=== PATIENT | female | born 1980 | race Caucasian/White ===

== ENCOUNTER 2018-11-22 15:29 | Emergency (ER) | payer BC, OTHER ==
[2018-11-22 15:34] VITALS: BP 124/82; PULSE 66; TEMP 98.2; BMI 30.2
[2018-11-22] MEDS ORDERED: ACETAMINOPHEN 1000 MG/100 ML VIAL (NON FORMULARY) IVPB ONE (15:34)
--- NOTE | 2018-11-22 15:34 | PDOC ---
Rapid Medical Evaluation Medical Evaluation: Allergies Allergy/AdvReac Type Severity Reaction Status Date / Time No Known Allergies Allergy Verified 12/14/12 19:12 I have performed a brief in-person evaluation of this patient. The patient presents with a chief complaint of: c/o R sided abdominal from yesterday radiating to lower back; last BM 2 days ago; is on menstrual cycle; denies urinary complaints, n/v, fever; only abd surgery: Pertinent physical exam findings: In NAD, abdomen soft/NT, no CVA tenderness I have ordered the following: labs The patient will proceed to the ED for further evaluation. 11/22/18 15:31
--- NOTE | 2018-11-22 19:39 | PDOC ---
*Physical Exam - Vital Signs Last Vital Signs Temp Pulse Resp BP Pulse Ox 98.2 F 66 19 124/82 100 11/22/18 15:32 11/22/18 15:32 11/22/18 15:32 11/22/18 15:32 11/22/18 15:32 ED Treatment Course - LABORATORY CBC & Chemistry Diagram: 11/22/18 20:15 11/22/18 20:15 Medical Decision Making - Medical Decision Making 11/22/18 19:39 Patient seen by the advanced practice provider under my direct supervision. Ancillary testing reviewed as necessary. I agree with plan as outlined by the advanced practice provider. *DC/Admit/Observation/Transfer Diagnosis at time of Disposition: Abdominal pain Qualifiers: Abdominal location: lower abdomen, unspecified Qualified Code(s): R10.30 - Lower abdominal pain, unspecified - Referrals Referrals: Janice Richard MD [Primary Care Provider] - - Patient Instructions - Post Discharge Activity
[2018-11-22] MEDS ORDERED: ACETAMINOPHEN INJECTION 100 ML IVPB ONE (20:02)
--- NOTE | 2018-11-22 20:10 | PDOC ---
History of Present Illness - General Chief Complaint: Pain Stated Complaint: ABD PAIN Time Seen by Provider: 11/22/18 15:31 History Source: Patient - History of Present Illness Initial Comments: 11/22/18 20:00 38 year old female with RLQ pain x 3 days now generalized abdominal pain. patient reports that pain started after she had episode of sneezing 3 days ago. denies NVD or fever. no BM x 1 day. denies urinary symptoms, chest pain. pain is worse with movement. LMP: now Past History - Past Medical History Allergies/Adverse Reactions: Allergies Allergy/AdvReac Type Severity Reaction Status Date / Time No Known Allergies Allergy Verified 11/22/18 15:34 Home Medications: Ambulatory Orders Acetaminophen [Tylenol .Regular Strength -] 650 mg PO Q4H PRN #0 tablet Ferrous Sulfate [Feosol] 325 mg PO BID #1 ud 12/16/12 Ibuprofen [Motrin -] 600 mg PO Q4H PRN #0 tablet 12/16/12 Vitamins (Sjr) - 1 tab PO DAILY #1 tablet 12/16/12 Ibuprofen 600 mg PO QID PRN #20 tablet 11/23/18 Asthma: No Cancer: No Cardiac Disorders: No COPD: No Diabetes: No HTN: No Seizures: No Thyroid Disease: No - Suicide/Smoking/Psychosocial Hx Smoking History: Never smoked Information on smoking cessation initiated: No Hx Alcohol Use: No Drug/Substance Use Hx: No Hx Substance Use Treatment: No Review of Systems - Review of Systems Able to Perform ROS?: Yes Is the patient limited Turkmen proficient: No Constitutional: Yes: Symptoms Reported Respiratory: No: Symptoms reported, See HPI, Cough, Orthopnea, Shortness of Breath, SOB with Exertion, SOB at Rest, Stridor, Wheezing, Productive cough, Hemoptysis, Other Cardiac (ROS): No: Symptoms Reported, See HPI, Chest Pain, Edema, Irregular Heart Rate, Lightheadedness, Palpitations, Syncope, Chest Tightness, Other ABD/GI: Yes: Abdominal cramping. No: Symptoms Reported, See HPI, Abdominal Distended, Abd. Pain w/ defecation, Blood Streaked Bowels, Constipated, Diarrhea , Difficulty Swallowing, Nausea, Poor Appetite, Poor Fluid Intake, Rectal Bleeding, Vomiting, Indigestion, Tarry Stools, Other : No: Symptoms Reported, See HPI, Burning, Dysuria, Discharge, Frequency, Flank Pain, Hematuria, Incontinence, Pain, Urgency, Testicular Mass, Testicular Swelling, Lesions, Testicular Pain, Other *Physical Exam - Vital Signs Last Vital Signs Temp Pulse Resp BP Pulse Ox 98.2 F 66 19 124/82 100 11/22/18 15:32 11/22/18 15:32 11/22/18 15:32 11/22/18 15:32 11/22/18 15:32 - Physical Exam General Appearance: Yes: Appropriately Dressed Respiratory/Chest: positive: Lungs Clear, Normal Breath Sounds Cardiovascular: positive: Regular Rhythm, Regular Rate Gastrointestinal/Abdominal: positive: Normal Bowel Sounds, Tender (RLQ), Soft Musculoskeletal: positive: Normal Inspection Extremity: positive: Normal Capillary Refill, Normal Inspection, Normal Range of Motion Integumentary: positive: Normal Color, Dry, Warm Neurologic: positive: creative assistant II-XII NML intact, Fully Oriented, Alert, Normal Mood/ Affect ED Treatment Course - LABORATORY CBC & Chemistry Diagram: 11/22/18 20:15 11/22/18 20:15 Progress Note - Progress Note Progress Note: A: abdominal pain P: cbc cmp ua urine transvaginal US CTAP : Lung bases are clear. The visualized cardiac chambers are normal size and configuration. Normal liver, gallbladder, pancreas, spleen, adrenal glands and kidneys. The stomach and abdominal small and large bowel are normal. There is no aortic aneurysm. There is no significant retroperitoneal lymphadenopathy. The pelvic small and large bowel are normal. The appendix is normal. The uterus and adnexal structures are normal. Urinary bladder is unremarkable. There is no pelvic free fluid. No discrete pelvic lymphadenopathy is identified. Medical Decision Making - Medical Decision Making patient is feeling better. strict return precautions reviewed with patient. patient has no urinary symptoms. Large casts in this UA sample. patient will repeat test with PCP *DC/Admit/Observation/Transfer Diagnosis at time of Disposition: Abdominal pain Qualifiers: Abdominal location: lower abdomen, unspecified Qualified Code(s): R10.30 - Lower abdominal pain, unspecified - Discharge Dispostion Disposition: HOME Condition at time of disposition: Fair - Prescriptions Prescriptions: Ibuprofen 600 mg PO QID PRN #20 tablet PRN Reason: Pain - Referrals Referrals: Janice Richard MD [Primary Care Provider] - - Patient Instructions Printed Discharge Instructions: DI for Abdominal Pain-Adult Additional Instructions: Additional Instructions: * Please call your personal physician to report your Emergency Department visit and to report your progress, if any. * If there is no improvement in symptoms in 2 days call your physician. * Return to the Emergency Department for any worsening symptoms. - Post Discharge Activity Forms/Work/School Notes: Back to Work
[2018-11-22] MEDS ORDERED: SODIUM CHLORIDE 1,000 ML IV STA (20:20)
[2018-11-22 20:43] LABS: BASO % 0.5 % (0-2.0); EOS % 1.6 % (0-4.5); HEMATOCRIT 40.2 % (32.4-45.2); HEMOGLOBIN 13.4 GM/dL (10.7-15.3); LYMPH % 25.5 % (8-40); MCH 28.3 pg (25.7-33.7); MCHC 33.4 g/dl (32.0-36.0); MEAN CELL VOLUME 84.9 fl (80-96); MEAN PLT VOLUME 7.7 fl (7.5-11.1); MONO % 6.8 % (3.8-10.2); NEUT % 65.6 % (42.8-82.8); PLATELET COUNT 269 K/MM3 (134-434); RBC 4.73 M/mm3 (3.60-5.2); RDW 14.4 % (11.6-15.6); WHITE BLOOD COUNT 5.9 K/mm3 (4.0-10.0)
[2018-11-22 20:45] LABS: EPI CELLS 11.5 /HPF (0-5/HPF); HYALINE CASTS 206 /lpf (0-8); URINE APPEARANCE TURBID; URINE BACTERIA 0 /hpf (NEGATIVE); URINE BILIRUBIN 2+ (NEGATIVE); URINE COLOR RED; URINE GLUCOSE (UA) NEGATIVE (NEGATIVE); URINE KETONE 2+ (NEGATIVE); URINE LEUK ESTERASE 2+ (NEGATIVE); URINE NITRITE POSITIVE (NEGATIVE); URINE PROTEIN 2+ (NEGATIVE); URINE RBC 8853 /hpf (0-4); URINE UROBILINOGEN 0.2 mg/dL (0.2-1.0); URINE WBC 20 /hpf (0-5)
[2018-11-22 21:06] LABS: ALBUMIN 3.8 g/dl (3.4-5.0); BILIRUBIN,TOTAL 0.3 mg/dL (0.2-1); CREATININE 0.6 mg/dL (0.55-1.3); TOT PROT 7.2 g/dl (6.4-8.2)
[2018-11-23] MEDS ORDERED: KETOROLAC TROMETHAMINE 30 MG/1 ML VIAL IVPUSH ONE (00:44)
[2018-11-23] MEDS ORDERED: KETOROLAC TROMETHAMINE 30 MG/1 ML VIAL ONE (00:57)
== END 2018-11-23 01:05 | disposition home or self-care (01) ==
LOC: JER 15:29
PROC: 3E0337Z Introduction of Electrolytic and Water Balance Substance into Peripheral Vein, Percutaneous Approach (ICD-10-PCS; principal; 2018-11-22)
PROC: 3E033NZ Introduction of Analgesics, Hypnotics, Sedatives into Peripheral Vein, Percutaneous Approach (ICD-10-PCS; 2018-11-22)
PROC: 3E0333Z Introduction of Anti-inflammatory into Peripheral Vein, Percutaneous Approach (ICD-10-PCS; 2018-11-22)
DX: R10.30 Lower abdominal pain, unspecified (principal)
CPT/HCPCS: 36415; 74177-TC; 76830-TC; 80053; 81003; 84703; 85025; 99283-25; J0131; J7030

== ENCOUNTER 2022-10-06 09:35 | Emergency (ER) | payer BC ==
[2022-10-06 09:46] VITALS: BP 126/74; PULSE 74; RESP 18; TEMP 98.7; BMI 31.6
[2022-10-06] MEDS ORDERED: ACETAMINOPHEN 500 MG TABLET (FP) PO ONE (10:24)
[2022-10-06] MEDS ORDERED: ACETAMINOPHEN 325 MG TABLET (FP) ONE (10:53)
== END 2022-10-06 11:12 | disposition home or self-care (01) ==
LOC: JER 09:35 → JERFT 09:35
DX: L03.312 Cellulitis of back [any part except buttock and flank] (principal); R21 Rash and other nonspecific skin eruption; R22.2 Localized swelling, mass and lump, trunk; L53.9 Erythematous condition, unspecified
CPT/HCPCS: 99283-25